=== PATIENT | female | born 1965 | race Caucasian/White ===

== ENCOUNTER 2018-11-13 09:57 | Day surgery (SDC) | payer OTHER ==
[2018-11-13] MEDS ORDERED: MIDAZOLAM 1 MG/ML 2 ML INJ ×2 (12:15)
[2018-11-13] MEDS ORDERED: FENTAnyl 50 MCG/ML VIAL (12:15)
== END 2018-11-13 12:54 | disposition home or self-care (01) ==
LOC: GIL 09:57
DX: Z12.11 Encounter for screening for malignant neoplasm of colon (principal); K64.8 Other hemorrhoids
CPT/HCPCS: 45378; 84703